=== PATIENT | male | born 1965 | race Two or more races ===

== ENCOUNTER 2022-07-30 08:08 | Emergency (ER) | payer MEDICAID ==
[~2022-07-30] VITALS: Ht 188 cm; Wt 95.3 kg
--- NOTE | 2022-07-30 08:15 | NUR ---
Sleeping Soundly Respirations even and unlabored
--- NOTE | 2022-07-30 08:15 | NUR ---
CLARE FROM [facility] [place] FOR ETOH. PT ADMITS TO DRINKING ALCOHOL "ALOT" TODAY. BREATHING EVEN AND UNLABORED. TRANSFERRED TO BED. AAOX4. CONNECTED TO MONITOR. VITAL SIGNS STABLE. SAFETY PRECAUTIONS IN PLACE. AWAITING MD ORDERS.
--- NOTE | 2022-07-30 12:40 | NUR ---
Pt awake- Ambulatory Gait even and steady
--- NOTE | 2022-07-30 12:46 | NUR ---
Patient discharged to home in stable condition. Verbal after care instructions given. Patient Refused lunch and ACI. Walked out in NO obvious distress. Stable
[2022-07-30 12:47] VITALS: BP 110/75
--- NOTE | 2022-07-30 13:08 | NUR ---
THE PATIENT ELOPED AND LEFT FACILITY, THE PATIENT HAS NO IV LINE.
== END 2022-07-30 13:00 | disposition home or self-care (01) ==
LOC: ER 08:13
DX: F10.129 Alcohol abuse with intoxication, unspecified (principal); M25.552 Pain in left hip; R51.9 Headache, unspecified; M54.2 Cervicalgia; Z59.00 Homelessness unspecified; Y90.9 Presence of alcohol in blood, level not specified
CPT/HCPCS: 70450-TC; 72125-TC; 73502; 73700-TC; 82962-TC

== ENCOUNTER 2024-09-20 15:47 | Inpatient (IN) | payer MEDICAID ==
[~2024-09-20] VITALS: Ht 188 cm; Wt 99.8 kg
[2024-09-20] MEDS ORDERED: OLANZAPINE 5 MG TABLET ONE (16:19)
[2024-09-20] MEDS: OLANZAPINE ZYDIS 5 MG TAB.RAPDIS PO ONE (16:46)
[2024-09-20 16:53] LABS: BASOPHILS # (AUTO) 0.1 K/uL (0.0-0.2); EOSINOPHILS % (AUTO) 0.1 % (0.0-6.0); HEMATOCRIT 36 % (39-51); HEMOGLOBIN 12.2 g/dL (13.5-17.5); LYMPHOCYTES # (AUTO) 3.2 K/uL (0.8-4.8); LYMPHOCYTES % (AUTO) 34.3 % (20.0-44.0); MEAN CORPUSCULAR HEMOGLOBIN 27 PG (26.0-33.0); MEAN CORPUSCULAR HGB CONC 34 g/dl (31.0-36.0); MEAN CORPUSCULAR VOLUME 81 fL (80-96); MONOCYTES # (AUTO) 0.5 K/uL (0.1-1.30); MONOCYTES % (AUTO) 5.6 % (2.0-12.0); NEUTROPHILS # (AUTO) 5.6 K/uL (1.8-8.9); PLATELET COUNT (AUTO) 337 K/uL (150-450); RED BLOOD CELL COUNT(AUTO) 4.48 MIL/uL (4.5-6.0); RED CELL DISTRIBUTION WIDTH 14.6 % (11.5-15.0); WHITE BLOOD COUNT (AUTO) 9.4 K/uL (4.3-11.0)
[2024-09-20 16:56] LABS: CALCIUM, SERUM 8.4 mg/dL (8.5-10.1); CARBON DIOXIDE 23 mmol/L (21-32); CHLORIDE 106 mmol/L (98-107); CREATININE 0.9 mg/dL (0.6-1.3); GLUCOSE 103 mg/dL (74-106); POTASSIUM 4.2 mmol/L (3.5-5.1); SODIUM SERUM 141 mmol/L (136-145); UREA NITROGEN, BLOOD 11 mg/dL (7-18)
[2024-09-20 17:03] LABS: ALANINE AMINOTRANSFERASE 35 U/L (12-78); ALBUMIN 3.6 g/dL (3.4-5.0); ALKALINE PHOSPHATASE 101 U/L (46-116); ASPARTATE AMINOTRANSFERASE 39 U/L (15-37); BILIRUBIN,DIRECT 0.2 mg/dL (0.0-0.2); BILIRUBIN,TOTAL 0.7 mg/dL (0.2-1.0); TOTAL PROTEIN, SERUM 7.6 g/dL (6.4-8.2)
[2024-09-20 17:05] LABS: ACETAMINOPHEN <10 ug/ml (10-30); SALICYLATE 0.3 mg/dL (2.8-20.0)
[2024-09-20 17:30] LABS: ALCOHOL, BLOOD 398 mg/dL (0-10)
[2024-09-20 23:15] LABS: ANISOCYTOSIS 1+; LYMPHOCYTES % (MANUAL) 29 % (16-48); MONOCYTES % (MANUAL) 5 % (0-11.0); NEUTROPHILS % (MANUAL) 66 (42-76); PLATELET ESTIMATE ADEQUATE
[2024-09-21 05:06] LABS: APPEARANCE,URINE CLEAR (CLEAR); BILIRUBIN,URINE NEGATIVE (NEGATIVE); BLOOD, URINE NEGATIVE Ery/uL (NEGATIVE); COLOR,URINE YELLOW (YELLOW); KETONES,URINE NEGATIVE (NEGATIVE); LEUKOCYTE ESTERASE ,URINE NEGATIVE (NEGATIVE); NITRITE, URINE NEGATIVE (NEGATIVE); PH,URINE 5.5 (5.0-8.0); PROTEIN,URINE NEGATIVE (NEGATIVE); UGLUCOSE NEGATIVE (NEGATIVE); UROBILINOGEN,URINE 0.2 EU/dL (0.2)
[2024-09-21] MEDS ORDERED: LORAZEPAM INJ 2 MG/ML VIAL ONE (05:06)
[2024-09-21 05:10] LABS: AMPHETAMINE, URINE NEGATIVE (NEGATIVE); BARBITURATE, URINE NEGATIVE (NEGATIVE); CANNABINOID, URINE NEGATIVE (NEGATIVE); COCCAINE, URINE NEGATIVE (NEGATIVE); OPIATE, URINE NEGATIVE (NEGATIVE); PHENCYCLIDINE SCREEN,URINE NEGATIVE (NEGATIVE)
[2024-09-21 05:11] LABS: BENZODIAZEPINE, URINE POSITIVE (NEGATIVE)
[2024-09-21] MEDS: LORAZEPAM INJ 2 MG/ML VIAL IM ONE (05:14)
[2024-09-21] MEDS: Thiamine 100 MG in IV D5W 50 ML IV SCH (09:00)
[2024-09-21] MEDS ORDERED: FOLIC ACID 1 MG TABLET ONE (12:07)
[2024-09-21] MEDS: FOLIC ACID 1 MG TABLET PO ONE (12:10)
[2024-09-21] MEDS ORDERED: OMEG-72 PO (14:50)
[2024-09-21] MEDS ORDERED: GABA300C PO (14:50)
[2024-09-21] MEDS ORDERED: LOSA1TAB36 PO (14:50)
[2024-09-21] MEDS ORDERED: DOCU-141 PO (14:50)
[2024-09-21] MEDS ORDERED: METO50TA16 PO (14:50)
[2024-09-21] MEDS ORDERED: ROSU20TA32 PO (14:50)
[2024-09-21] MEDS ORDERED: ACETAMINOPHEN 325 MG TABLET PO PRN (15:30)
[2024-09-21] MEDS ORDERED: ONDANSETRON HCL/PF 4 MG/2 ML VIAL IVP PRN (15:30)
[2024-09-21] MEDS ORDERED: Z GUARD REMEDY 4 OZ OINT TP PRN (15:30)
[2024-09-21] MEDS: CHLORDIAZEPOXIDE HCL 25 MG CAPSULE PO SCH (15:53)
[2024-09-21] MEDS: DICYCLOMINE HCL 10 MG CAPSULE PO ONE (15:53)
[2024-09-21] MEDS: FAMOTIDINE (20 MG) 20 MG TABLET PO ONE (15:53)
[2024-09-21] MEDS: MULTIVITAMINS,THERAGRAN 1 UDTAB TABLET PO SCH (15:53)
[2024-09-21 16:00] VITALS: BP 146/75; TEMP 97.5; O2SAT 96
[2024-09-21] MEDS: GABAPENTIN 300 MG CAPSULE PO SCH (16:04)
[2024-09-21] MEDS: METOPROLOL TARTRATE 50 MG TABLET PO SCH (16:05)
[2024-09-21 20:00] VITALS: BP 137/91; TEMP 98.2; O2SAT 95
[2024-09-21] MEDS: IV LR 1000 ML 1,000 ML IV PRN (20:45)
[2024-09-21 21:30] VITALS: BP 137/90; TEMP 98.2; O2SAT 95
[2024-09-21] MEDS: ATORVASTATIN 40 MG TABLET PO SCH (21:54)
[2024-09-22] MEDS: PANTOPRAZOLE 40 MG TABLET.DR PO SCH (08:15)
[2024-09-22 08:17] LABS: BASOPHILS % (AUTO) 0.3 % (0.0-2.0); EOSINOPHILS % (AUTO) 0.2 % (0.0-6.0); HEMATOCRIT 37 % (39-51); HEMOGLOBIN 12.2 g/dL (13.5-17.5); LYMPHOCYTES # (AUTO) 1.7 K/uL (0.8-4.8); LYMPHOCYTES % (AUTO) 20.5 % (20.0-44.0); MEAN CORPUSCULAR HEMOGLOBIN 28 PG (26.0-33.0); MEAN CORPUSCULAR HGB CONC 34 g/dl (31.0-36.0); MEAN CORPUSCULAR VOLUME 82 fL (80-96); MONOCYTES # (AUTO) 0.7 K/uL (0.1-1.30); MONOCYTES % (AUTO) 8.4 % (2.0-12.0); NEUTROPHILS # (AUTO) 5.7 K/uL (1.8-8.9); NEUTROPHILS % (AUTO) 70.6 % (43.0-81.0); PLATELET COUNT (AUTO) 219 K/uL (150-450); RED BLOOD CELL COUNT(AUTO) 4.45 MIL/uL (4.5-6.0); RED CELL DISTRIBUTION WIDTH 14.6 % (11.5-15.0); WHITE BLOOD COUNT (AUTO) 8.1 K/uL (4.3-11.0)
[2024-09-22 08:30] LABS: ALBUMIN 3.1 g/dL (3.4-5.0); BILIRUBIN,TOTAL 1.7 mg/dL (0.2-1.0); CALCIUM, SERUM 9.2 mg/dL (8.5-10.1); CREATININE 0.7 mg/dL (0.6-1.3); MAGNESIUM 2.1 mg/dL (1.8-2.4); PHOSPHORUS 3.3 mg/dL (2.5-4.9); POTASSIUM 3.6 mmol/L (3.5-5.1)
[2024-09-22 08:36] VITALS: BP 143/102; TEMP 98.2; O2SAT 97
[2024-09-22] MEDS: FOLIC ACID 1 MG TABLET PO SCH (08:46)
[2024-09-22] MEDS: DOCUSATE SODIUM 100 MG CAPSULE PO SCH (08:46)
[2024-09-22 08:47] VITALS: BP 143/102
[2024-09-22] MEDS: THIAMINE HCL 100 MG TABLET PO SCH (08:47)
[2024-09-22] MEDS: LOSARTAN POTASSIUM 50 MG TABLET PO SCH (08:47)
== END 2024-09-22 15:43 | disposition home or self-care (01) | DRG 775 ==
LOC: ER 15:50 → MED 09-21 11:57
PROVIDERS: ADMIT Nurse Practitioner Acute Care; ATTEND Internal Medicine
DX: F10.929 Alcohol use, unspecified with intoxication, unspecified (principal); E11.40 Type 2 diabetes mellitus with diabetic neuropathy, unspecified; F10.939 Alcohol use, unspecified with withdrawal, unspecified; R25.1 Tremor, unspecified; Y90.8 Blood alcohol level of 240 mg/100 ml or more; Z59.00 Homelessness unspecified; Z76.5 Malingerer [conscious simulation]; I10 Essential (primary) hypertension; F17.200 Nicotine dependence, unspecified, uncomplicated; Z79.899 Other long term (current) drug therapy; R74.01 Elevation of levels of liver transaminase levels; E66.9 Obesity, unspecified; F32.A Depression, unspecified; E78.5 Hyperlipidemia, unspecified; F41.9 Anxiety disorder, unspecified; Z98.890 Other specified postprocedural states; Z87.828 Personal history of other (healed) physical injury and trauma
CPT/HCPCS: 36415; 70450-TC; 71250-TC; 72125-TC; 80048-TC; 80053-TC; 80061-TC; 80076-TC; 83540-TC; 83735-TC; 84100-TC; 85025-TC; 97110-TC; 97116-TC; 97530-TC; 98960; A4223; G0378; G0480; J2060; J3411; J7060; J7120